=== PATIENT | male | born 1960 | race African-American/Black ===

== ENCOUNTER 2018-07-08 09:38 | Emergency (ER) | payer OTHER, SELFPAY ==
[~2018-07-08] VITALS: Ht 185.4 cm; Wt 82.6 kg
[2018-07-08] MEDS ORDERED: LATUDA80 MG PO (09:51)
--- NOTE | 2018-07-08 09:57 | NUR ---
ED Nurse Note: Pt from home came in due to abd. pain and rectal bleeding x 3 weeks. Also c/o lightheadedness and headache ocassionally. Denies constipation. Per family member, pt has also been experiencing forgetfulness at times and states pt is currently on a mental rehab program. Pt is AAO x4, ambulates with steady gait with non labored breathing. VSS.
[2018-07-08 10:00] VITALS: BP 110/75
--- NOTE | 2018-07-08 11:08 | Emergency Room Report ---
History of Present Illness General Chief Complaint: Abdominal Pain Source: Patient Present Illness HPI Patient is a 57-year-old male brought in by mom for increased epigastric pain. Patient was noted to have increased bloody stools. Patient states he had prior history of ulcer disease. Patient denies taking any NSAIDs. He had prior history of bipolar disease and takes Latuda. Patient denies any hematemesis. Allergies: Coded Allergies: No Known Allergies (Unverified , 04/30/13) Patient History Past Medical History: see triage record Reviewed Nursing Documentation: PMH: Agreed; PSxH: Agreed Nursing Documentation-PMH Past Medical History: No History, Except For Hx Gastrointestinal Problems: Yes - gallstones History Of Psychiatric Problem: Yes Review of Systems All Other Systems: negative except mentioned in HPI Physical Exam Vital Signs Date Time Temp Pulse Resp B/P (MAP) Pulse Ox O2 Delivery O2 Flow Rate FiO2 07/08/18 09:47 98.1 76 17 107/64 98 Room Air Sp02 EP Interpretation: reviewed, normal General Appearance: normal inspection, well appearing, no apparent distress, alert, GCS 15 Head: atraumatic ENT: normal ENT inspection, hearing grossly normal, normal voice Neck: normal inspection, full range of motion, supple, no bony tend Respiratory: normal inspection, lungs clear, normal breath sounds, no respiratory distress, no retraction, no wheezing Cardiovascular #1: regular rate, rhythm, no edema Gastrointestinal: normal inspection, normal bowel sounds, soft, no guarding, no hernia, tenderness - epigastric Genitourinary: no CVA tenderness Musculoskeletal: normal inspection, back normal, normal range of motion Neurologic: normal inspection, alert, oriented x3, responsive, speech normal Psychiatric: normal inspection, judgement/insight normal, mood/affect normal Skin: normal inspection, normal color, no rash Medical Decision Making Diagnostic Impression: Primary Impression: Stomach ulcer Additional Impression: Dehydration ER Course Patient presented for abdominal pain. Differential diagnoses included ischemic bowel, appendicitis, perforated viscus, abdominal aortic aneurysm, inferior myocardial infarction, viral gastroenteritis among others.Because of complexity of patient's case laboratory testing and imaging studies were ordered. Patient was noted to have prior history of ulcer disease. He was given IV acid blockers. Patient was noted to have normal blood counts. Given the patient's prolonged time of symptoms this is not appear to be significant bleeding requiring inpatient management. Patient was advised outpatient GI follow-up. Patient is to return if he began having any dizziness worsen bleeding or other concerns. Labs Test 07/08/18 10:58 07/08/18 11:15 Stool Occult Blood Negative (NEGATIVE) White Blood Count 5.8 K/UL (4.8-10.8) Red Blood Count 4.79 M/UL (4.70-6.10) Hemoglobin 14.4 G/DL (14.2-18.0) Hematocrit 44.6 % (42.0-52.0) Mean Corpuscular Volume 93 FL (80-99) Mean Corpuscular Hemoglobin 30.1 PG (27.0-31.0) Mean Corpuscular Hemoglobin Concent 32.4 G/DL (32.0-36.0) Red Cell Distribution Width 13.7 % (11.6-14.8) Platelet Count 129 K/UL (150-450) Mean Platelet Volume 7.3 FL (6.5-10.1) Neutrophils (%) (Auto) 48.1 % (45.0-75.0) Lymphocytes (%) (Auto) 38.1 % (20.0-45.0) Monocytes (%) (Auto) 10.0 % (1.0-10.0) Eosinophils (%) (Auto) 2.2 % (0.0-3.0) Basophils (%) (Auto) 1.6 % (0.0-2.0) Prothrombin Time 11.0 SEC (9.30-11.50) Prothromb Time International Ratio 1.0 (0.9-1.1) Activated Partial Thromboplast Time 28 SEC (23-33) Urine Color Pale yellow Urine Appearance Clear Urine pH 5 (4.5-8.0) Urine Specific [place] 1.015 (1.005-1.035) Urine Protein Negative (NEGATIVE) Urine Glucose (UA) Negative (NEGATIVE) Urine Ketones Negative (NEGATIVE) Urine Blood Negative (NEGATIVE) Urine Nitrite Negative (NEGATIVE) Urine Bilirubin Negative (NEGATIVE) Urine Urobilinogen Normal MG/DL (0.0-1.0) Urine Leukocyte Esterase Negative (NEGATIVE) Sodium Level 139 MMOL/L (136-145) Potassium Level 4.2 MMOL/L (3.5-5.1) Chloride Level 101 MMOL/L (98-107) Carbon Dioxide Level 32 MMOL/L (21-32) Anion Gap 6 mmol/L (5-15) Blood Urea Nitrogen 22 mg/dL (7-18) Creatinine 1.5 MG/DL (0.55-1.30) Estimat Glomerular Filtration Rate 58.7 mL/min (>60) Glucose Level 92 MG/DL (74-106) Calcium Level 9.7 MG/DL (8.5-10.1) Total Bilirubin 0.5 MG/DL (0.2-1.0) Aspartate Amino Transf (AST/SGOT) 23 U/L (15-37) Alanine Aminotransferase (ALT/SGPT) 21 U/L (12-78) Alkaline Phosphatase 68 U/L (46-116) Troponin I 0.001 ng/mL (0.000-0.056) Total Protein 7.3 G/DL (6.4-8.2) Albumin 3.8 G/DL (3.4-5.0) Globulin 3.5 g/dL Albumin/Globulin Ratio 1.1 (1.0-2.7) Lipase 200 U/L (73-393) Last Vital Signs Date Time Temp Pulse Resp B/P (MAP) Pulse Ox O2 Delivery O2 Flow Rate FiO2 07/08/18 09:57 76 17 Room Air 07/08/18 09:47 98.1 107/64 98 Status: improved Disposition: HOME, SELF-CARE Condition: Stable Scripts Pantoprazole* (PANTOPRAZOLE*) 40 Mg Tablet.dr 40 MG ORAL DAILY, #30 TAB Prov: Jose Valverde MD 07/08/18 Dicyclomine Hcl* (DICYCLOMINE HCL*) 10 Mg Capsule 10 MG PO QID, #30 CAP Prov: Jose Valverde MD 07/08/18 Referrals: [facility],REFERRING (PCP) Jose Valverde MD Jul 08, 2018 11:08
[2018-07-08] MEDS ORDERED: Isovue-300 100ml vial INJ PRN (11:15)
[2018-07-08] MEDS ORDERED: Pantoprazole Inj IV ONE (11:15)
--- NOTE | 2018-07-08 11:23 | NUR ---
ED Nurse Note: Collected blood and sent to lab.
[2018-07-08 11:29] LABS: BASOPHILS % (AUTO) 1.6 % (0.0-2.0); EOSINOPHILS % (AUTO) 2.2 % (0.0-3.0); HEMATOCRIT 44.6 % (42.0-52.0); HEMOGLOBIN 14.4 G/DL (14.2-18.0); LYMPHOCYTES % (AUTO) 38.1 % (20.0-45.0); MEAN CORPUSCULAR VOLUME 93 FL (80-99); NEUTROPHILS % (AUTO) 48.1 % (45.0-75.0); PLATELET COUNT 129 K/UL (150-450); RED BLOOD COUNT 4.79 M/UL (4.70-6.10); RED CELL DISTRIBUTION WIDTH 13.7 % (11.6-14.8); WHITE BLOOD COUNT 5.8 K/UL (4.8-10.8)
[2018-07-08 11:40] LABS: ANION GAP 6 mmol/L (5-15); BLOOD UREA NITROGEN 22 mg/dL (7-18); CALCIUM 9.7 MG/DL (8.5-10.1); CARBON DIOXIDE 32 MMOL/L (21-32); CHLORIDE 101 MMOL/L (98-107); CREATININE 1.5 MG/DL (0.55-1.30); POTASSIUM 4.2 MMOL/L (3.5-5.1); SODIUM 139 MMOL/L (136-145)
[2018-07-08 11:44] LABS: ALANINE AMINOTRANSFERASE 21 U/L (12-78); ALBUMIN 3.8 G/DL (3.4-5.0); ALBUMIN/GLOBULIN RATIO 1.1 (1.0-2.7); ALKALINE PHOSPHATASE 68 U/L (46-116); ASPARTATE AMINO TRANSFERASE 23 U/L (15-37); BILIRUBIN,TOTAL 0.5 MG/DL (0.2-1.0)
[2018-07-08 11:50] VITALS: BP 122/64
--- NOTE | 2018-07-08 11:50 | NUR ---
ED Nurse Note: Stool sample sent.
[2018-07-08 12:26] LABS: APPEARANCE,URINE CLEAR; BILIRUBIN, URINE NEGATIVE (NEGATIVE); COLOR,URINE PALE YELLOW; GLUCOSE, URINE (UA) NEGATIVE (NEGATIVE); KETONES,URINE NEGATIVE (NEGATIVE); LEUKOCYTE ESTERASE ,URINE NEGATIVE (NEGATIVE); NITRITE,URINE NEGATIVE (NEGATIVE); PH,URINE 5 (4.5-8.0); PROTEIN,URINE NEGATIVE (NEGATIVE); UROBILINOGEN,URINE NORMAL MG/DL (0.0-1.0)
--- NOTE | 2018-07-08 12:50 | Diagnostic Imaging Report ---
Indication: Epigastric abdominal pain with blood in stool Technique: Spiral acquisitions obtained through the abdomen and pelvis. No oral contrast utilized, per emergency room physician request No IV contrast utilized, per referring physician request.. Multiplanar reconstructions were generated. Total dose length product 721.25 mGycm. CTDIvol(s) 14.12 mGy. Dose reduction achieved using automated exposure control Comparison: None Findings: Lack of enteric contrast administration limits assessment of the GI tract. The appendix is normal. There is no evidence of colonic diverticulosis or diverticulitis. No small bowel distention. No free or loculated intraperitoneal gas or fluid is evident. The distal esophagus, stomach, duodenum are unremarkable. The gallbladder contains multiple gallstones. It is nondistended. Lack of IV contrast limits assessment of solid organs. The liver, bile ducts, pancreas, spleen, adrenals, kidneys are unremarkable. No retroperitoneal or mesenteric mass or adenopathy. No pelvic mass or adenopathy. The included lung bases are clear except for minimal atelectasis on the left. The bones demonstrate bilateral L5 spondylolysis, minimal grade 1 L5 on S1 spondylolisthesis. There is a superior endplate compression fracture deformity of the L3 vertebral body. Impression: Very limited assessment of the GI tract, due to lack of enteric contrast menstruation No definite acute abnormality. No gross findings to suggest etiology of stated clinical history of blood in stool Cholelithiasis Bilateral L5 spondylolysis, minimal grade 1 L5 on S1 spondylolisthesis Age indeterminate superior endplate compression fracture deformity of the L3 vertebral body. Consider MRI for better characterization if this is considered clinically relevant Minimal left basilar pulmonary atelectasis The CT scanner at [facility] is accredited by the [employer] and the scans are performed using protocols designed to limit radiation exposure to as low as reasonably achievable to attain images of sufficient resolution adequate for diagnostic evaluation.
[2018-07-08 14:00] VITALS: BP 133/76
[2018-07-08] MEDS ORDERED: DICYCLOMINE HCL10 MG PO (14:06)
[2018-07-08] MEDS ORDERED: PANTOPRAZOLE SO40 MG ORAL (14:06)
[2018-07-08 14:30] VITALS: BP 117/71
--- NOTE | 2018-07-08 14:33 | NUR ---
ED Nurse Note: Pt cleared for discharge by ER MD. DC instructions was given and explained to pt and verbalized understanding of teachings. all medical devices such as ID band/IV removed. Pt is AAO x4, ambulatory and left with all perosnal belongings. Pt left with his .
== END 2018-07-08 14:30 | disposition home or self-care (01) ==
LOC: EMR 10:35
DX: K25.9 Gastric ulcer, unspecified as acute or chronic, without hemorrhage or perforation (principal); E86.0 Dehydration
CPT/HCPCS: 36415; 74176; 80053; 81003; 82270; 83690; 84484; 85025; 85610; 85730; 86850; 86900; 86901; 93005; 96374; 99284; C9113

== ENCOUNTER 2018-09-02 16:54 | Emergency (ER) | payer OTHER ==
[~2018-09-02] VITALS: Ht 185.4 cm; Wt 89.4 kg
[~2018-09-02 16:54] MED LIST: DICYCLOMINE HCL10 MG PO; LATUDA80 MG PO; PANTOPRAZOLE SO40 MG ORAL
[2018-09-02] MEDS ORDERED: Lidocaine 2% Visc 15ml soln ORAL ONE (17:30)
[2018-09-02] MEDS ORDERED: Dicyclomine HCl 10mg/5ml oral soln ORAL ONE (17:30)
[2018-09-02] MEDS ORDERED: Mylanta II UD 30ml ORAL ONE (17:30)
[2018-09-02 17:38] VITALS: BP 141/95
[2018-09-02 17:39] LABS: APPEARANCE,URINE CLEAR; BILIRUBIN, URINE NEGATIVE (NEGATIVE); COLOR,URINE PALE YELLOW; GLUCOSE, URINE (UA) NEGATIVE (NEGATIVE); KETONES,URINE NEGATIVE (NEGATIVE); LEUKOCYTE ESTERASE ,URINE NEGATIVE (NEGATIVE); NITRITE,URINE NEGATIVE (NEGATIVE); PH,URINE 8 (4.5-8.0); PROTEIN,URINE NEGATIVE (NEGATIVE); UROBILINOGEN,URINE NORMAL MG/DL (0.0-1.0)
[2018-09-02 17:40] LABS: BASOPHILS % (AUTO) 2.2 % (0.0-2.0); EOSINOPHILS % (AUTO) 0.8 % (0.0-3.0); HEMATOCRIT 48.6 % (42.0-52.0); HEMOGLOBIN 15.8 G/DL (14.2-18.0); MEAN CORPUSCULAR VOLUME 89 FL (80-99); MONOCYTES % (AUTO) 5.9 % (1.0-10.0); NEUTROPHILS % (AUTO) 51.2 % (45.0-75.0); PLATELET COUNT 137 K/UL (150-450); RED BLOOD COUNT 5.46 M/UL (4.70-6.10); RED CELL DISTRIBUTION WIDTH 13.2 % (11.6-14.8); WHITE BLOOD COUNT 6.5 K/UL (4.8-10.8)
[2018-09-02 17:56] LABS: ANION GAP 11 mmol/L (5-15); BLOOD UREA NITROGEN 8 mg/dL (7-18); CALCIUM 12.8 MG/DL (8.5-10.1); CARBON DIOXIDE 28 MMOL/L (21-32); CHLORIDE 98 MMOL/L (98-107); CREATININE 1.5 MG/DL (0.55-1.30); POTASSIUM 3.6 MMOL/L (3.5-5.1); SODIUM 137 MMOL/L (136-145)
[2018-09-02 18:00] LABS: ALANINE AMINOTRANSFERASE 22 U/L (12-78); ALBUMIN 4.3 G/DL (3.4-5.0); ALBUMIN/GLOBULIN RATIO 1.2 (1.0-2.7); ALKALINE PHOSPHATASE 73 U/L (46-116); ASPARTATE AMINO TRANSFERASE 28 U/L (15-37); BILIRUBIN,TOTAL 0.6 MG/DL (0.2-1.0)
[2018-09-02] MEDS ORDERED: LORazepam Inj 2mg/ml 1ml IV ONE (19:00)
[2018-09-02] MEDS ORDERED: Isovue-300 100ml vial INJ PRN (19:00)
[2018-09-02] MEDS ORDERED: PANTOPRAZOLE SO40 MG ORAL (21:00)
[2018-09-02] MEDS ORDERED: DICYCLOMINE HCL10 MG PO (21:00)
[2018-09-02 21:07] VITALS: BP 145/86
--- NOTE | 2018-09-02 21:40 | Emergency Room Report ---
History of Present Illness General Chief Complaint: Nausea Source: Patient, Family Member Present Illness HPI 57-year-old male presents ED for evaluation. Patient states that he is having abdominal pain and nausea for the last few days. Pain is sharp, 10 out of 10, nonradiating. Denies vomiting or diarrhea. Denies fevers or chills. Denies chest pain. States he's had similar pain in the past. Notes history of gallstones. No other aggravating relieving factors. Denies any other associated symptoms Allergies: Coded Allergies: No Known Allergies (Unverified , 04/30/13) Patient History Past Medical History: HTN, other - gallstones Past Surgical History: none Pertinent Family History: none Social History: Denies: smoking, alcohol use, drug use Immunizations: UTD Reviewed Nursing Documentation: PMH: Agreed; PSxH: Agreed Nursing Documentation-PMH Past Medical History: No History, Except For Hx Hypertension: Yes Hx Gastrointestinal Problems: Yes - gallstones Review of Systems All Other Systems: negative except mentioned in HPI Physical Exam Vital Signs Date Time Temp Pulse Resp B/P (MAP) Pulse Ox O2 Delivery O2 Flow Rate FiO2 09/02/18 16:59 98.2 75 18 141/95 96 Room Air Sp02 EP Interpretation: reviewed, normal General Appearance: no apparent distress, alert, GCS 15, non-toxic Head: normocephalic, atraumatic Eyes: bilateral eye normal inspection, bilateral eye PERRL ENT: hearing grossly normal, normal pharynx, no angioedema, normal voice Neck: full range of motion, supple/symm/no masses Respiratory: chest non-tender, lungs clear, normal breath sounds, speaking full sentences Cardiovascular #1: regular rate, rhythm, no edema Cardiovascular #2: 2+ carotid (R), 2+ carotid (L), 2+ radial (R), 2+ radial (L) , 2+ dorsalis pedis (R), 2+ dorsalis pedis (L) Gastrointestinal: normal bowel sounds, soft, non-distended, no guarding, no rebound, tenderness Rectal: deferred Genitourinary: normal inspection, no CVA tenderness Musculoskeletal: back normal, gait/station normal, normal range of motion, non- tender Neurologic: alert, oriented x3, responsive, motor strength/tone normal, sensory intact, speech normal Psychiatric: judgement/insight normal, memory normal, no suicidal/homicidal ideation, anxious Reflexes: 3+ bicep (R), 3+ bicep (L), 3+ tricep (R), 3+ tricep (L), 3+ knee (R) , 3+ knee (L) Skin: normal color, no rash, warm/dry, well hydrated Lymphatic: no adenopathy Medical Decision Making Diagnostic Impression: Primary Impression: Cholelithiasis Qualified Codes: K80.80 - Other cholelithiasis without obstruction ER Course Hospital Course 57-year-old M presents to ED with abdominal pain Differential diagnosis includes-appendicitis, cholecystitis, small bowel obstruction, gastritis, Clinical course Patient placed on stretcher. After initial history and physical I ordered labs , IV fluids, pain medications and CT scan Labs - no leukocytosis, electrolytes ok, LFTs normal CT scan shows multiple gallstones but no signs of gallbladder wall thickening or biliary obstruction Discussed findings with patient. Patient can be safely discharged home at this time. We'll provide referrals. Brother will come to take patient home I feel this is a highly complex case requiring extensive working including EKG/ Rhythm strip, Xray/CT/US, Blood/urine lab work, repeat exams while in ED, and administration of strong opiates/narcotics for pain control, admission to hospital or close patient follow up. Diagnosis - cholelithiasis Stable and discharged to home with Rx Protonix, Bentyl. Followup with PMD. Return to ED if symptoms recur or worsen Labs Test 09/02/18 17:25 White Blood Count 6.5 K/UL (4.8-10.8) Red Blood Count 5.46 M/UL (4.70-6.10) Hemoglobin 15.8 G/DL (14.2-18.0) Hematocrit 48.6 % (42.0-52.0) Mean Corpuscular Volume 89 FL (80-99) Mean Corpuscular Hemoglobin 29.0 PG (27.0-31.0) Mean Corpuscular Hemoglobin Concent 32.6 G/DL (32.0-36.0) Red Cell Distribution Width 13.2 % (11.6-14.8) Platelet Count 137 K/UL (150-450) Mean Platelet Volume 7.1 FL (6.5-10.1) Neutrophils (%) (Auto) 51.2 % (45.0-75.0) Lymphocytes (%) (Auto) 40.0 % (20.0-45.0) Monocytes (%) (Auto) 5.9 % (1.0-10.0) Eosinophils (%) (Auto) 0.8 % (0.0-3.0) Basophils (%) (Auto) 2.2 % (0.0-2.0) Urine Color Pale yellow Urine Appearance Clear Urine pH 8 (4.5-8.0) Urine Specific [place] 1.010 (1.005-1.035) Urine Protein Negative (NEGATIVE) Urine Glucose (UA) Negative (NEGATIVE) Urine Ketones Negative (NEGATIVE) Urine Blood Negative (NEGATIVE) Urine Nitrite Negative (NEGATIVE) Urine Bilirubin Negative (NEGATIVE) Urine Urobilinogen Normal MG/DL (0.0-1.0) Urine Leukocyte Esterase Negative (NEGATIVE) Sodium Level 137 MMOL/L (136-145) Potassium Level 3.6 MMOL/L (3.5-5.1) Chloride Level 98 MMOL/L (98-107) Carbon Dioxide Level 28 MMOL/L (21-32) Anion Gap 11 mmol/L (5-15) Blood Urea Nitrogen 8 mg/dL (7-18) Creatinine 1.5 MG/DL (0.55-1.30) Estimat Glomerular Filtration Rate 58.7 mL/min (>60) Glucose Level 112 MG/DL (74-106) Calcium Level 12.8 MG/DL (8.5-10.1) Total Bilirubin 0.6 MG/DL (0.2-1.0) Aspartate Amino Transf (AST/SGOT) 28 U/L (15-37) Alanine Aminotransferase (ALT/SGPT) 22 U/L (12-78) Alkaline Phosphatase 73 U/L (46-116) Total Protein 8.0 G/DL (6.4-8.2) Albumin 4.3 G/DL (3.4-5.0) Globulin 3.7 g/dL Albumin/Globulin Ratio 1.2 (1.0-2.7) Lipase 108 U/L (73-393) Serum Alcohol < 3 mg/dL CT/MRI/US Diagnostic Results CT/MRI/US Diagnostic Results : Imaging Test Ordered: CT A/P Impression The gallbladder contains multiple gallstones. It is nondistended. Lack of IV contrast limits assessment of solid organs. The liver, bile ducts, pancreas, spleen, adrenals, kidneys are unremarkable. No retroperitoneal or mesenteric mass or adenopathy. No pelvic mass or adenopathy. Last Vital Signs Date Time Temp Pulse Resp B/P (MAP) Pulse Ox O2 Delivery O2 Flow Rate FiO2 09/02/18 17:38 98.2 74 18 141/95 96 Room Air Status: improved Disposition: HOME, SELF-CARE Condition: Stable Scripts Pantoprazole* (PANTOPRAZOLE*) 40 Mg Tablet.dr 40 MG ORAL DAILY, #30 TAB Prov: Truman Ortega MD 09/02/18 Dicyclomine Hcl* (DICYCLOMINE HCL*) 10 Mg Capsule 10 MG PO QID, #30 CAP Prov: Truman Ortega MD 09/02/18 Referrals: NON PHYSICIAN (PCP) [facility] Patient Instructions: Cholelithiasis, [id number] Truman Ortega MD Sep 02, 2018 21:40
--- NOTE | 2018-09-03 09:33 | Diagnostic Imaging Report ---
Indication: Abdominal pain Technique: Continuous helical transaxial imaging of the abdomen and pelvis was obtained from the lung bases to the pubic symphysis during intravenous contrast administration. Coronal 2-D reformats were also obtained. Study obtained in a Siemens sensation [address] Automatic Exposure Control was utilized. Total Dose length Product (DLP): 751.[address] Dose Index Volume (CTDIvol): 14.36 mGy Comparison: 07/08/2018 Findings: Lung bases are clear. The gallbladder is contracted. There is a stone at the base of the gallbladder. The kidneys, adrenal glands, pancreas, liver and spleen are unremarkable. No bowel obstruction identified. The appendix is normal. Bladder is unremarkable. Asymmetry of the inguinal canal noted with some fullness on the right. Inguinal hernia may be present. Correlate clinically mild aortoiliac calcifications are present. L5 spondylolysis and mild spondylolisthesis L5 on S1 noted. Vacuum phenomenon narrowing of the L5-S1 discs demonstrated. Mild hypertrophy of the facets noted in the lower lumbar spine and spurs noted in the sacroiliac joints bilaterally. IMPRESSION: Cholelithiasis. Gallbladder contracted. Atherosclerotic disease Question of a small right inguinal hernia L5 spondylolysis. L5 on S1 spondylolisthesis. Facet arthropathy The CT scanner at [facility] is accredited by the [employer] and the scans are performed using dose optimization techniques as appropriate to a performed exam including Automatic Exposure control.
== END 2018-09-02 21:07 | disposition home or self-care (01) ==
LOC: EMR 17:08
DX: K80.20 Calculus of gallbladder without cholecystitis without obstruction (principal); K40.90 Unilateral inguinal hernia, without obstruction or gangrene, not specified as recurrent; M47.816 Spondylosis without myelopathy or radiculopathy, lumbar region; M43.17 Spondylolisthesis, lumbosacral region
CPT/HCPCS: 36415; 74177; 80053; 80329; 81003; 83690; 85025; 96361; 96374; 96375; 99284; J2405; Q9967; S0028

== ENCOUNTER 2019-07-15 21:38 | Emergency (ER) | payer OTHER ==
[~2019-07-15] VITALS: Ht 185.4 cm; Wt 83.9 kg
[2019-07-15 21:56] VITALS: BP 115/77
--- NOTE | 2019-07-15 21:56 | NUR ---
ED Nurse Note: PT AMBULATED INTO ed FROM HOME WITH BROTHER CO OF ABDOMINAL PAIN 10/10 ON LOWER MEDIAL ABDOMEN. PT REPORTS PAIN STARTED 3 DAYS AGO WHILE HE WAS AT HOME RESTING; PT DENIES RADIATING PAIN. PT BROTHER STATES THAT PT SAID HIS PAIN WAS BECAUSE HE COULD "FEEL HIS DAUGHTERS CONTRACTIONS." PT BROTHER STATES THAT PT HAS HAD ALTERED MENTATION SINCE PT PSYCH MEDICATIONS HAVE BEEN CHANGED AND ADJUSTED; PT PCP AWARE ACCORDING TO BROTHER. PT AAO X 2-3, POOR HISTORIAN. PT BROTHER STATES THAT PT WAS RECENTLY GIVEN VARIOUS NEW MEDICATIONS FROM PTS DENTIST BUT STATES THAT PT REPORT PT REFUSING ALL HOME MEDS. VSS, NO S/S OF DISTRESS NOTED. AWAITING ERMD AT BEDSIDE.
--- NOTE | 2019-07-15 22:10 | NUR ---
ED Nurse Note: ERMD at bedside
--- NOTE | 2019-07-15 22:14 | Emergency Room Report ---
History of Present Illness General Chief Complaint: Abdominal Pain Source: Family Member Present Illness HPI Patient is a 58-year-old male who presents after increased abdominal pain. Patient a prior history of gallstones. Prior history of bipolar disorder. Had previous CT imaging approximately 8 months ago. Patient denied any vomiting. Allergies: Coded Allergies: No Known Allergies (Unverified , 04/30/13) Patient History Past Medical History: see triage record Reviewed Nursing Documentation: PMH: Agreed; PSxH: Agreed Nursing Documentation-PMH Hx Hypertension: Yes Hx Gastrointestinal Problems: Yes - gallstones Review of Systems All Other Systems: negative except mentioned in HPI Physical Exam Vital Signs Date Time Temp Pulse Resp B/P (MAP) Pulse Ox O2 Delivery O2 Flow Rate FiO2 07/15/19 21:46 97.5 110 18 115/77 (90) 97 Room Air Sp02 EP Interpretation: reviewed, normal General Appearance: normal inspection, alert, GCS 15, Chronically Ill Head: atraumatic ENT: normal ENT inspection, hearing grossly normal, normal voice Neck: normal inspection, full range of motion, supple, no bony tend Respiratory: normal inspection, lungs clear, normal breath sounds, no respiratory distress, no retraction, no wheezing Cardiovascular #1: regular rate, rhythm, no edema Gastrointestinal: normal inspection, normal bowel sounds, non tender, soft, no guarding, no hernia Genitourinary: no CVA tenderness Musculoskeletal: normal inspection, back normal, normal range of motion Neurologic: alert, motor strength/tone normal, application security developer III-XII nml as tested, responsive, speech normal, normal inspection Psychiatric: normal inspection, mood/affect normal Medical Decision Making Diagnostic Impression: Primary Impression: Cholelithiasis ER Course Patient presented for abdominal pain. Differential diagnosis include was not limited to cholecystitis, abdominal aortic aneurysm, ulcer, bowel obstruction among others. Because of complexity of patient's case laboratory tests and imaging studies were ordered. Patient's laboratory testing was unremarkable. He was given medications with improvement of symptoms. CT of abdomen pelvis read by radiology showed fluid-filled bowel consistent with enteritis. See radiology report for full details. Patient appears to be stable for outpatient management. Patient was discharged home with his brother. Return precautions were given. Patient was to return if worse. The patient is advised to follow up with primary care doctor in 1-2 days. Patient is advised to return if any worsening condition or if any changes in status that are concerning. This report is dictated with [employer] senior support engineer software which may occasionally lead to discrepancies related to use of this software. Labs Test 07/15/19 22:37 07/15/19 23:59 White Blood Count 5.4 K/UL (4.8-10.8) Red Blood Count 5.08 M/UL (4.70-6.10) Hemoglobin 15.1 G/DL (14.2-18.0) Hematocrit 47.2 % (42.0-52.0) Mean Corpuscular Volume 93 FL (80-99) Mean Corpuscular Hemoglobin 29.7 PG (27.0-31.0) Mean Corpuscular Hemoglobin Concent 31.9 G/DL (32.0-36.0) Red Cell Distribution Width 13.7 % (11.6-14.8) Platelet Count 144 K/UL (150-450) Mean Platelet Volume 7.8 FL (6.5-10.1) Neutrophils (%) (Auto) 65.1 % (45.0-75.0) Lymphocytes (%) (Auto) 27.1 % (20.0-45.0) Monocytes (%) (Auto) 5.6 % (1.0-10.0) Eosinophils (%) (Auto) 0.9 % (0.0-3.0) Basophils (%) (Auto) 1.3 % (0.0-2.0) Sodium Level 141 MMOL/L (136-145) Potassium Level 4.3 MMOL/L (3.5-5.1) Chloride Level 103 MMOL/L (98-107) Carbon Dioxide Level 28 MMOL/L (21-32) Anion Gap 10 mmol/L (5-15) Blood Urea Nitrogen 17 mg/dL (7-18) Creatinine 1.2 MG/DL (0.55-1.30) Estimat Glomerular Filtration Rate > 60 mL/min (>60) Glucose Level 120 MG/DL (74-106) Calcium Level 9.1 MG/DL (8.5-10.1) Total Bilirubin 0.6 MG/DL (0.2-1.0) Aspartate Amino Transf (AST/SGOT) 21 U/L (15-37) Alanine Aminotransferase (ALT/SGPT) 17 U/L (12-78) Alkaline Phosphatase 77 U/L (46-116) Total Creatine Kinase 244 U/L (26-308) Troponin I 0.002 ng/mL (0.000-0.056) Total Protein 7.3 G/DL (6.4-8.2) Albumin 4.0 G/DL (3.4-5.0) Globulin 3.3 g/dL Albumin/Globulin Ratio 1.2 (1.0-2.7) Lipase 64 U/L (73-393) Urine Color Yellow Urine Appearance Clear Urine pH 5 (4.5-8.0) Urine Specific [place] 1.020 (1.005-1.035) Urine Protein 1+ (NEGATIVE) Urine Glucose (UA) Negative (NEGATIVE) Urine Ketones 2+ (NEGATIVE) Urine Blood Negative (NEGATIVE) Urine Nitrite Negative (NEGATIVE) Urine Bilirubin Negative (NEGATIVE) Urine Urobilinogen Normal MG/DL (0.0-1.0) Urine Leukocyte Esterase Negative (NEGATIVE) Urine RBC 0-2 /HPF (0 - 0) Urine WBC 0-2 /HPF (0 - 0) Urine Squamous Epithelial Cells Occasional /LPF Urine Bacteria Occasional /HPF (NONE) Urine Mucus Few /LPF (NONE/OCC) Last Vital Signs Date Time Temp Pulse Resp B/P (MAP) Pulse Ox O2 Delivery O2 Flow Rate FiO2 07/15/19 21:46 97.5 110 18 115/77 (90) 97 Room Air Status: improved Disposition: HOME, SELF-CARE Condition: Stable Scripts Omeprazole Magnesium (PRILOSEC OTC) 20 Mg Tablet.dr 20 MG ORAL DAILY, #30 TAB Prov: Jose Valverde MD 07/16/19 Dicyclomine Hcl* (DICYCLOMINE HCL*) 10 Mg Capsule 10 MG ORAL QID, #20 CAP Prov: Jose Valverde MD 07/16/19 Jose Valverde MD Jul 15, 2019 22:14
--- NOTE | 2019-07-15 22:20 | NUR ---
ED Nurse Note: ALL BLOOD WORK SENT TO LAB
[2019-07-15] MEDS ORDERED: Mylanta II UD 30ml ORAL ONE (22:30)
[2019-07-15] MEDS ORDERED: Dicyclomine HCl 10mg/5ml oral soln ORAL ONE (22:30)
[2019-07-15] MEDS ORDERED: Omnipaque-300 100ml vial INJ PRN (22:30)
[2019-07-15] MEDS ORDERED: Lidocaine 2% Visc 15ml soln ORAL ONE (22:30)
--- NOTE | 2019-07-15 22:30 | NUR ---
ED Nurse Note: ALL MEDICATIONS ADMINISTERED; NO S/S OF DISTRESS NOTED, NO ADVERSE REACTIONS NOTED. PT RESTING IN BED.
[2019-07-15 22:50] LABS: BASOPHILS % (AUTO) 1.3 % (0.0-2.0); EOSINOPHILS % (AUTO) 0.9 % (0.0-3.0); HEMATOCRIT 47.2 % (42.0-52.0); HEMOGLOBIN 15.1 G/DL (14.2-18.0); LYMPHOCYTES % (AUTO) 27.1 % (20.0-45.0); MEAN CORPUSCULAR VOLUME 93 FL (80-99); MONOCYTES % (AUTO) 5.6 % (1.0-10.0); NEUTROPHILS % (AUTO) 65.1 % (45.0-75.0); PLATELET COUNT 144 K/UL (150-450); RED BLOOD COUNT 5.08 M/UL (4.70-6.10); RED CELL DISTRIBUTION WIDTH 13.7 % (11.6-14.8); WHITE BLOOD COUNT 5.4 K/UL (4.8-10.8)
[2019-07-15 23:02] LABS: ANION GAP 10 mmol/L (5-15); BLOOD UREA NITROGEN 17 mg/dL (7-18); CALCIUM 9.1 MG/DL (8.5-10.1); CARBON DIOXIDE 28 MMOL/L (21-32); CHLORIDE 103 MMOL/L (98-107); CREATININE 1.2 MG/DL (0.55-1.30); POTASSIUM 4.3 MMOL/L (3.5-5.1); SODIUM 141 MMOL/L (136-145)
[2019-07-15 23:06] LABS: ALANINE AMINOTRANSFERASE 17 U/L (12-78); ALBUMIN/GLOBULIN RATIO 1.2 (1.0-2.7); ALKALINE PHOSPHATASE 77 U/L (46-116); ASPARTATE AMINO TRANSFERASE 21 U/L (15-37); BILIRUBIN,TOTAL 0.6 MG/DL (0.2-1.0); CREATINE KINASE 244 U/L (26-308)
[2019-07-15 23:30] VITALS: BP 116/77
--- NOTE | 2019-07-15 23:30 | NUR ---
ED Nurse Note: PT TAKEN TO CT IN STABLE CONDITION, VSS NO S/S OF DISTRESS NOTED.
--- NOTE | 2019-07-15 23:44 | Diagnostic Imaging Report ---
EXAM: CT Abdomen and Pelvis With Intravenous Contrast CLINICAL HISTORY: ABD PAIN TECHNIQUE: Axial computed tomography images of the abdomen and pelvis with intravenous contrast. CTDI is 4 mGy and DLP is 246 mGy-cm. One or more of the following dose reduction techniques were used: automated exposure control, adjustment of the mA and/or kV according to patient size, use of iterative reconstruction technique. COMPARISON: No relevant prior studies available. FINDINGS: Lung bases: No mass. No consolidation. ABDOMEN: Liver: Unremarkable. Gallbladder and bile ducts: Multiple tiny stones layering dependently. Pancreas: Unremarkable. Spleen: Unremarkable. Adrenals: Unremarkable. Kidneys and ureters: No hydronephrosis. Stomach and bowel: No bowel obstruction. No bowel wall thickening. Diffusely fluid-filled hyperemic small bowel. Copious amounts of stool throughout the colon. PELVIS: Appendix: No evidence of appendicitis. Bladder: Unremarkable. Reproductive: Mildly enlarged prostate gland. ABDOMEN and PELVIS: Intraperitoneal space: Unremarkable. Bones/joints: No acute fractures. Chronic mild wedging of L3. Grade 1 anterolisthesis of L5 on S1 secondary to bilateral L5 pars defects. Soft tissues: Unremarkable. Vasculature: No abdominal aortic aneurysm. Lymph nodes: No enlarged lymph nodes. IMPRESSION: 1. Cholelithiasis. 2. Diffusely fluid-filled hyperemic small bowel, nonspecific, correlate with gastroenteritis. 3. Copious amounts of stool throughout the colon. 4. Mildly enlarged prostate gland.
--- NOTE | 2019-07-15 23:45 | NUR ---
ED Nurse Note: PT RETURNED FROM CT IN STABLE CONDITION, VSS NO S/S OF DISTRESS NOTED.
--- NOTE | 2019-07-15 23:59 | NUR ---
ED Nurse Note: URINE SENT TO LAB
--- NOTE | 2019-07-16 00:15 | NUR ---
ED Nurse NoTE: PT RESTING IN BED, NO S/S OF DISTRESS NOTED.
[2019-07-16 00:40] LABS: APPEARANCE,URINE CLEAR; BILIRUBIN, URINE NEGATIVE (NEGATIVE); COLOR,URINE YELLOW; GLUCOSE, URINE (UA) NEGATIVE (NEGATIVE); KETONES,URINE 2+ (NEGATIVE); LEUKOCYTE ESTERASE ,URINE NEGATIVE (NEGATIVE); NITRITE,URINE NEGATIVE (NEGATIVE); PH,URINE 5 (4.5-8.0); PROTEIN,URINE 1+ (NEGATIVE); UROBILINOGEN,URINE NORMAL MG/DL (0.0-1.0)
[2019-07-16] MEDS ORDERED: DICYCLOMINE HCL10 MG ORAL (01:02)
[2019-07-16] MEDS ORDERED: PRILOSEC OTC20 MG ORAL (01:02)
[2019-07-16 01:20] VITALS: BP 117/75
--- NOTE | 2019-07-16 01:29 | NUR ---
ED Nurse Note: Pt brother called for pt last picker for discharge.
[2019-07-16 02:02] VITALS: BP 117/73
--- NOTE | 2019-07-16 02:02 | NUR ---
ER DISCHARGE NOTE: Patient is cleared to be discharged home with brother per [facility], pt is aox4, on room air, with stable vital signs. pt was given dc and prescription instructions, pt was able to verbalize understanding, pt id band and iv site removed without complications. pt is able to ambulate with steady gait. pt took all belongings.
== END 2019-07-16 02:02 | disposition home or self-care (01) ==
LOC: EMR 22:05 → EDBD 22:05 → EMR 07-16 02:02
DX: K80.20 Calculus of gallbladder without cholecystitis without obstruction (principal); F31.9 Bipolar disorder, unspecified; I10 Essential (primary) hypertension
CPT/HCPCS: 36415; 74177; 80053; 81003; 82550; 83690; 84484; 85025; 96374; 96375; J2405; Q9967; S0028; Z7502; 99284